=== PATIENT | female | born 1970 | race Caucasian/White ===

== ENCOUNTER 2016-12-31 19:06 | Inpatient (IN) | payer OTHER ==
[~2016-12-31] VITALS: Ht 160 cm; Wt 100.2 kg
[~2016-12-31 19:06] MED LIST: ABI10 PO; ABILIFY PO; ABILIFY15 MG PO; AMBIEN5 MG PO; ASPIR LOW81 MG PO; BACLOFEN10 MG PO; BENAZEPRIL10 MG PO; BENC TOP; BUPROPION HCL150 M1 PO; BUPROPION300 MG PO; BUS10 PO; BUSPIRONE; BUSPIRONE15 MG PO; CLONAZEPAM0.5 MG PO; FIORICET1 TAB PO; FLEXERIL10 MG PO; GABAPENTIN; GLU500 PO; HUMI SC; INSULIN; LIPI20 PO; LIT300 PO; LITHIUM CARB300 MG PO; LITHIUM CARBON300 MG PO; LITHONATE300 MG PO; LYRICA150 M1 PO; LYRICA75 M1 PO; METFORMIN HCL1000 MG PO; METFORMIN1000 MG; METFORMIN1000 MG PO; MONTELUKAST SOD10 M1 PO; MOTRIN800 MG PO; NEU100 PO; OXYCODONE HYDRO10 M1 PO; REM15 PO; SEROQUEL25 MG PO; SEROQUEL300 MG; SEROQUEL300 MG PO; SIMVASTATIN10 M1 PO; THERAGRAN-M1 TA4 PO; TRAZODONE HYDR150 MG PO; TRAZODONE100 M1 PO; TRAZODONE150 M1 PO; VOL25 PO; WELLBUTRIN SR150 M PO; WELLBUTRIN SR200 MG PO; WELSR PO; ZESTRIL5 MG PO
[2016-12-31 20:28] LABS: BASOPHIL % 0.3 % (0-2); PLATELET COUNT 195 x10^3mcL (130-400); RED CELL DISTRIBUTION WIDTH 15.6 % (11.5-14.5)
[2016-12-31 20:51] LABS: CALCIUM 8.3 mg/dL (8.5-10.1); CHLORIDE SERUM 98 mmol/L (98-107); CREATININE SERUM 0.8 mg/dL (0.6-1.0); GFR1 > 60 mL/min; GLUCOSE SERUM 356 mg/dL (74-106); POTASSIUM SERUM 3.5 mmol/L (3.5-5.1); SODIUM SERUM 135 mmol/L (136-145)
[2016-12-31 20:55] LABS: ALKALINE PHOSPHATASE 104 U/L (46-116); ALT/SGPT 22 U/L (14-59); AST/SGOT 13 U/L (15-37); BILIRUBIN TOTAL 0.3 mg/dL (0.20-1.00); C REACTIVE PROTEIN 5.6 mg/dL (<=0.9); TOTAL PROTEIN, SERUM 6.2 g/dL (6.4-8.2)
[2016-12-31 20:56] LABS: T3 TOTAL 1.01 ng/mL
[2016-12-31 20:57] LABS: microscopic required? YES; urine erythrocyte 3+ (NEGATIVE)
[2016-12-31 21:02] LABS: FREE T4 1.07 ng/dL (0.76-1.46); FREE THYROXINE INDEX 2.5 ug/dL (1.4-4.5); T4(THYROXINE) 7.6 ug/dL (4.7-13.3)
[2016-12-31 21:19] LABS: ALBUMIN 2.8 g/dL (3.4-5.0)
[2016-12-31 21:28] LABS: ERYTHROCYTE SED RATE 32 mm/hr (0-20)
[2016-12-31 22:59] LABS: AMYLASE 25 U/L (25-115); CHOLESTEROL 160 mg/dL (<200); CHOLESTEROL/HDL RATIO 3.8; HDL CHOLESTEROL 42 mg/dL (40-60); LIPASE 129 IU/L (73-393)
[2016-12-31 23:04] LABS: TRIGLYCERIDES 519 mg/dL (<150)
[2016-12-31] MEDS ORDERED: HUMALOG100 U/ML SC (23:04)
[2016-12-31 23:07] VITALS: BP 98/61
[2016-12-31] MEDS ORDERED: LYRICA150 M1 PO (23:45)
[2016-12-31] MEDS ORDERED: METFORMIN HCL1000 MG PO (23:48)
[2016-12-31] MEDS ORDERED: HCTZ/TRIAMTEREN1 CA1 PO (23:50)
[2016-12-31] MEDS ORDERED: BUS10 PO (23:51)
[2016-12-31] MEDS ORDERED: TOPAMAX25 MG PO (23:51)
[2017-01-01 05:27] VITALS: BP 100/55
[2017-01-01 06:24] LABS: BASOPHIL % 0.4 % (0-2); PLATELET COUNT 212 x10^3mcL (130-400)
[2017-01-01 06:30] LABS: RED CELL DISTRIBUTION WIDTH 15.6 % (11.5-14.5)
[2017-01-01 06:44] LABS: CARBON DIOXIDE 26.2 mmol/L (21-32); CHLORIDE SERUM 106 mmol/L (98-107); CREATININE SERUM 0.6 mg/dL (0.6-1.0); GFR1 > 60 mL/min; GLUCOSE SERUM 255 mg/dL (74-106); MAGNESIUM 1.7 mg/dL (1.8-2.4); PHOSPHOROUS 2.8 mg/dL (2.5-4.9); POTASSIUM SERUM 3.9 mmol/L (3.5-5.1); SODIUM SERUM 141 mmol/L (136-145)
[2017-01-01 10:24] VITALS: BP 103/57
[2017-01-01 15:00] VITALS: BP 124/61
[2017-01-01 17:27] VITALS: BP 109/46
[2017-01-01 18:00] VITALS: BP 116/57
[2017-01-01 20:44] VITALS: BP 122/68
[2017-01-02 05:26] VITALS: BP 113/66
[2017-01-02 06:34] LABS: CALCIUM 7.9 mg/dL (8.5-10.1); CARBON DIOXIDE 20.6 mmol/L (21-32); CHLORIDE SERUM 112 mmol/L (98-107); CREATININE SERUM 0.5 mg/dL (0.6-1.0); GFR1 > 60 mL/min; GLUCOSE SERUM 192 mg/dL (74-106); MAGNESIUM 2.4 mg/dL (1.8-2.4); PHOSPHOROUS 3.3 mg/dL (2.5-4.9); POTASSIUM SERUM 4.4 mmol/L (3.5-5.1); SODIUM SERUM 145 mmol/L (136-145)
[2017-01-02 07:19] LABS: BASOPHIL % 0.5 % (0-2); PLATELET COUNT 219 x10^3mcL (130-400)
[2017-01-02 09:46] VITALS: BP 112/56
[2017-01-02] MEDS ORDERED: MAC100 PO (11:13)
[2017-01-02] MEDS ORDERED: LAC PO (11:14)
[2017-01-02] MEDS ORDERED: GLU10 PO (11:14)
[2017-01-02] MEDS ORDERED: COL100 PO (11:15)
[2017-01-02] MEDS ORDERED: GLU850 PO (11:22)
[2017-01-02 13:22] VITALS: BP 106/58
[2017-01-02 13:23] VITALS: BP 106/58; BP 172/90
[2017-01-02 15:33] VITALS: BP 106/58
== END 2017-01-02 17:30 | disposition home health service (06) | DRG 420 ==
LOC: ED 19:06 → DU 22:12
PROVIDERS: Family Medicine; Specialist; ADMIT Family Medicine
DX: E11.65 Type 2 diabetes mellitus with hyperglycemia (principal); G93.41 Metabolic encephalopathy; N39.0 Urinary tract infection, site not specified; B37.3 Candidiasis of vulva and vagina; E11.42 Type 2 diabetes mellitus with diabetic polyneuropathy; I10 Essential (primary) hypertension; J44.9 Chronic obstructive pulmonary disease, unspecified; G47.00 Insomnia, unspecified; E78.5 Hyperlipidemia, unspecified; F31.30 Bipolar disorder, current episode depressed, mild or moderate severity, unspecified; Z79.4 Long term (current) use of insulin; Z87.891 Personal history of nicotine dependence; Z68.39 Body mass index [BMI] 39.0-39.9, adult; Z79.84 Long term (current) use of oral hypoglycemic drugs; Z98.51 Tubal ligation status; Z88.8 Allergy status to other drugs, medicaments and biological substances; Z80.3 Family history of malignant neoplasm of breast; Z83.3 Family history of diabetes mellitus; Z82.49 Family history of ischemic heart disease and other diseases of the circulatory system; Z82.3 Family history of stroke; M19.90 Unspecified osteoarthritis, unspecified site
CPT/HCPCS: 36600; 82962; 83880; 84439; 97110-GP; 97116-GP; 97530-GP; J0696; J1815; J2405; J3475; J7030; J7613; Q0092

== ENCOUNTER 2017-03-21 14:12 | Emergency (ER) | payer OTHER ==
[~2017-03-21] VITALS: Ht 160 cm; Wt 111.3 kg
[~2017-03-21 14:12] MED LIST changes: +COL100 PO; +GLU10 PO; +GLU850 PO; +HCTZ/TRIAMTEREN1 CA1 PO; +HUMALOG100 U/ML SC; +LAC PO; +MAC100 PO; +TOPAMAX25 MG PO
[2017-03-21 15:30] LABS: BASOPHIL % 0.6 % (0-2); PLATELET COUNT 312 x10^3mcL (130-400)
[2017-03-21 15:36] LABS: CALCIUM 8.8 mg/dL (8.5-10.1); CREATININE SERUM 1.1 mg/dL (0.6-1.0); POTASSIUM SERUM 3.7 mmol/L (3.5-5.1)
[2017-03-21 15:42] LABS: ALBUMIN 3.5 g/dL (3.4-5.0); BILIRUBIN TOTAL 0.43 mg/dL (0.20-1.00); TOTAL PROTEIN, SERUM 7.4 g/dL (6.4-8.2)
[2017-03-21 17:00] VITALS: BP 126/77
== END 2017-03-21 17:00 | disposition home or self-care (01) ==
LOC: ED 14:12
PROVIDERS: Emergency Medicine
DX: K29.70 Gastritis, unspecified, without bleeding (principal); R60.0 Localized edema; J44.9 Chronic obstructive pulmonary disease, unspecified; E11.9 Type 2 diabetes mellitus without complications; I10 Essential (primary) hypertension; E66.9 Obesity, unspecified; G62.9 Polyneuropathy, unspecified; F31.9 Bipolar disorder, unspecified; Z79.4 Long term (current) use of insulin; Z79.899 Other long term (current) drug therapy; Z88.8 Allergy status to other drugs, medicaments and biological substances
CPT/HCPCS: Q0092; Q0162

== ENCOUNTER 2017-04-23 12:38 | Inpatient (IN) | payer OTHER ==
[~2017-04-23] VITALS: Ht 160 cm; Wt 114.0 kg
[2017-04-23 13:21] LABS: BASOPHIL % 0.4 % (0-2); PLATELET COUNT 225 x10^3mcL (130-400)
[2017-04-23 13:26] LABS: RED CELL DISTRIBUTION WIDTH 14.8 % (11.5-14.5)
[2017-04-23 13:29] LABS: CALCIUM 9.3 mg/dL (8.5-10.1); CARBON DIOXIDE 21.2 mmol/L (21-32); CHLORIDE SERUM 108 mmol/L (98-107); CREATININE SERUM 0.9 mg/dL (0.6-1.0); GFR1 > 60 mL/min; GLUCOSE SERUM 334 mg/dL (74-106); SODIUM SERUM 140 mmol/L (136-145)
[2017-04-23 13:33] LABS: ALBUMIN 3.2 g/dL (3.4-5.0); ALKALINE PHOSPHATASE 108 U/L (46-116); ALT/SGPT 40 U/L (14-59); AST/SGOT 24 U/L (15-37); BILIRUBIN TOTAL 0.23 mg/dL (0.20-1.00); TOTAL PROTEIN, SERUM 6.7 g/dL (6.4-8.2)
[2017-04-23 14:15] LABS: microscopic required? NO
[2017-04-23 14:34] LABS: UA SPECIFIC GRAVITY <=1.005 (1.005-1.035); urine erythrocyte NEGATIVE (NEGATIVE)
[2017-04-23] MEDS ORDERED: TOPAMAX50 M1 PO (15:06)
[2017-04-23] MEDS ORDERED: WELLBUTRIN XL300 M1 PO (15:08)
[2017-04-23] MEDS ORDERED: LANTUS SOLOS100 U/M1 SQ (15:10)
[2017-04-23] MEDS ORDERED: MIDODRINE HCL10 MG PO (15:15)
[2017-04-23] MEDS ORDERED: ALBUTEROL SULFAT3 ML NEB (15:16)
[2017-04-23] MEDS ORDERED: VENTOLIN H0.09 MG/A1 INH (15:16)
[2017-04-23] MEDS ORDERED: SINGULAIR10 MG PO (15:17)
[2017-04-23] MEDS ORDERED: MIRTAZAPINE15 M2 PO (15:17)
[2017-04-23] MEDS ORDERED: CLONAZEPAM0.5 MG PO (15:17)
[2017-04-23] MEDS ORDERED: PERCOCET1 TA5 PO (15:17)
[2017-04-23] MEDS ORDERED: FLOVENT DI100 MCG/A1 (15:19)
[2017-04-23] MEDS ORDERED: BREO ELLIPTA1 POW (15:19)
[2017-04-23] MEDS ORDERED: BUS10 PO (15:19)
[2017-04-23] MEDS ORDERED: AMBIEN5 MG PO (15:20)
[2017-04-23 15:43] VITALS: BP 124/71
[2017-04-23 16:55] VITALS: BP 124/71
[2017-04-23 17:08] VITALS: BP 124/76
[2017-04-23 20:56] VITALS: BP 107/59
[2017-04-24 05:17] VITALS: BP 104/71
[2017-04-24 06:27] LABS: CALCIUM 9.2 mg/dL (8.5-10.1); CARBON DIOXIDE 24.8 mmol/L (21-32); CHLORIDE SERUM 108 mmol/L (98-107); CREATININE SERUM 0.8 mg/dL (0.6-1.0); GFR1 > 60 mL/min; GLUCOSE SERUM 205 mg/dL (74-106); POTASSIUM SERUM 3.8 mmol/L (3.5-5.1); SODIUM SERUM 142 mmol/L (136-145)
[2017-04-24 06:34] LABS: BASOPHIL % 0.4 % (0-2); PLATELET COUNT 220 x10^3mcL (130-400)
[2017-04-24 06:47] LABS: RED CELL DISTRIBUTION WIDTH 14.8 % (11.5-14.5)
[2017-04-24 09:27] VITALS: BP 119/67
[2017-04-24 11:46] VITALS: Ht 160 cm; Wt 114.0 kg
[2017-04-24] MEDS ORDERED: LASIX20 MG PO (14:13)
[2017-04-24 15:17] VITALS: BP 119/67
== END 2017-04-24 16:00 | disposition home or self-care (01) | DRG 194 ==
LOC: ED 12:38 → DU 14:06
PROVIDERS: Emergency Medicine; ADMIT Internal Medicine Pulmonary Disease
DX: I11.0 Hypertensive heart disease with heart failure (principal); J44.9 Chronic obstructive pulmonary disease, unspecified; E66.9 Obesity, unspecified; I50.23 Acute on chronic systolic (congestive) heart failure; G47.33 Obstructive sleep apnea (adult) (pediatric); E11.9 Type 2 diabetes mellitus without complications
CPT/HCPCS: 82962; 83880; J1815; J1940; J3535; J7613; Q0092

== ENCOUNTER 2017-09-11 21:15 | Inpatient (IN) | payer OTHER ==
[~2017-09-11] VITALS: Ht 160 cm; Wt 115.7 kg
[~2017-09-11 21:15] MED LIST changes: +ALBUTEROL SULFAT3 ML NEB; +BREO ELLIPTA1 POW; +FLOVENT DI100 MCG/A1; +LANTUS SOLOS100 U/M1 SQ; +LASIX20 MG PO; +MIDODRINE HCL10 MG PO; +MIRTAZAPINE15 M2 PO; +PERCOCET1 TA5 PO; +SINGULAIR10 MG PO; +TOPAMAX50 M1 PO; +VENTOLIN H0.09 MG/A1 INH; +WELLBUTRIN XL300 M1 PO
[2017-09-11 21:19] VITALS: Ht 160 cm; Wt 115.7 kg
[2017-09-11 21:59] LABS: BASOPHIL % 0.4 % (0-2); PLATELET COUNT 302 x10^3mcL (130-400); RED CELL DISTRIBUTION WIDTH 18.7 % (11.5-14.5)
[2017-09-11 22:08] LABS: CALCIUM 9.3 mg/dL (8.5-10.1); CARBON DIOXIDE 26.9 mmol/L (21-32); CHLORIDE SERUM 102 mmol/L (98-107); CREATININE SERUM 0.7 mg/dL (0.6-1.0); GFR1 > 60 mL/min; GLUCOSE SERUM 175 mg/dL (74-106); POTASSIUM SERUM 3.6 mmol/L (3.5-5.1); SODIUM SERUM 139 mmol/L (136-145)
[2017-09-11 22:13] LABS: ALBUMIN 3.5 g/dL (3.4-5.0); ALKALINE PHOSPHATASE 95 U/L (46-116); ALT/SGPT 62 U/L (14-59); AST/SGOT 113 U/L (15-37); BILIRUBIN TOTAL 0.31 mg/dL (0.20-1.00); TOTAL PROTEIN, SERUM 7.5 g/dL (6.4-8.2)
[2017-09-12 00:11] LABS: CHOLESTEROL/HDL RATIO 3.7; MAGNESIUM 1.6 mg/dL (1.8-2.4); PHOSPHOROUS 3.3 mg/dL (2.5-4.9)
[2017-09-12 00:24] LABS: FREE T4 1.16 ng/dL (0.76-1.46); FREE THYROXINE INDEX 2.9 ug/dL (1.4-4.5); T4(THYROXINE) 9.2 ug/dL (4.7-13.3)
[2017-09-12 01:01] VITALS: BP 103/56
[2017-09-12] MEDS ORDERED: RISPERIDONE2 M1 PO (01:49)
[2017-09-12] MEDS ORDERED: CLONAZEPAM0.5 MG PO (01:49)
[2017-09-12 02:54] LABS: T3 TOTAL 1.3 ng/mL
[2017-09-12 05:08] VITALS: BP 109/67
[2017-09-12 06:27] LABS: TOTAL IRON BINDING CAPACITY 396 ug/dL (250-450)
[2017-09-12 06:44] LABS: IRON 25 ug/dL (50-170)
[2017-09-12 07:49] LABS: RED BLOOD CELLS 4.39 M/mm3 (4.10-5.10)
[2017-09-12 08:59] VITALS: BP 110/70
[2017-09-12 12:49] VITALS: BP 126/82
[2017-09-12 15:41] LABS: microscopic required? NO
[2017-09-12 15:51] LABS: UA SPECIFIC GRAVITY 1.015 (1.005-1.035); urine erythrocyte NEGATIVE (NEGATIVE)
[2017-09-12 16:30] LABS: AMPHETAMINE QUAL UR NONE DETECTED (NEG <=1000)
[2017-09-12 16:41] VITALS: BP 123/76
[2017-09-12 20:59] VITALS: BP 109/65
[2017-09-13 05:14] VITALS: BP 125/68
[2017-09-13 06:51] LABS: BASOPHIL % 0.7 % (0-2); PLATELET COUNT 237 x10^3mcL (130-400)
[2017-09-13 07:21] LABS: CALCIUM 8.7 mg/dL (8.5-10.1); CARBON DIOXIDE 24.5 mmol/L (21-32); CHLORIDE SERUM 102 mmol/L (98-107); CREATININE SERUM 0.6 mg/dL (0.6-1.0); GFR1 > 60 mL/min; GLUCOSE SERUM 201 mg/dL (74-106); MAGNESIUM 1.7 mg/dL (1.8-2.4); PHOSPHOROUS 3.8 mg/dL (2.5-4.9); POTASSIUM SERUM 3.9 mmol/L (3.5-5.1); SODIUM SERUM 136 mmol/L (136-145)
[2017-09-13 07:33] LABS: RED CELL DISTRIBUTION WIDTH 18.9 % (11.5-14.5)
[2017-09-13 09:31] VITALS: BP 112/60
[2017-09-13] MEDS ORDERED: METAMUCIL FIBE3.4 GM PO (09:45)
[2017-09-13 12:58] VITALS: BP 112/60
[2017-09-13 13:47] VITALS: BP 98/63
== END 2017-09-13 14:00 | disposition home or self-care (01) | DRG 756 ==
LOC: ED 21:15 → DU 23:34
PROVIDERS: Emergency Medicine; Family Medicine
DX: F41.1 Generalized anxiety disorder (principal); I11.0 Hypertensive heart disease with heart failure; I50.9 Heart failure, unspecified; E11.40 Type 2 diabetes mellitus with diabetic neuropathy, unspecified; Z88.8 Allergy status to other drugs, medicaments and biological substances; J44.9 Chronic obstructive pulmonary disease, unspecified; F31.9 Bipolar disorder, unspecified; E11.65 Type 2 diabetes mellitus with hyperglycemia; E78.5 Hyperlipidemia, unspecified; E66.01 Morbid (severe) obesity due to excess calories; Z68.41 Body mass index [BMI] 40.0-44.9, adult; E83.42 Hypomagnesemia; E02 Subclinical iodine-deficiency hypothyroidism; D64.9 Anemia, unspecified; Z83.3 Family history of diabetes mellitus; Z82.49 Family history of ischemic heart disease and other diseases of the circulatory system; Z80.3 Family history of malignant neoplasm of breast; Z82.3 Family history of stroke; F17.200 Nicotine dependence, unspecified, uncomplicated
CPT/HCPCS: 82962; 83880; 84439; J2405; J7030; J7613; J7620; J7633; J7644; Q0092

== ENCOUNTER 2017-11-25 11:35 | Emergency (ER) | payer OTHER ==
[~2017-11-25] VITALS: Ht 160 cm; Wt 115.2 kg
[~2017-11-25 11:35] MED LIST changes: +METAMUCIL FIBE3.4 GM PO; +RISPERIDONE2 M1 PO
[2017-11-25 11:42] VITALS: Ht 160 cm; Wt 115.2 kg
[2017-11-25 13:55] VITALS: BP 108/88
== END 2017-11-25 13:55 | disposition home or self-care (01) ==
LOC: ED 11:35
DX: Z48.01 Encounter for change or removal of surgical wound dressing (principal); J44.9 Chronic obstructive pulmonary disease, unspecified; I10 Essential (primary) hypertension; E11.9 Type 2 diabetes mellitus without complications; Z88.8 Allergy status to other drugs, medicaments and biological substances

== ENCOUNTER 2018-06-29 11:52 | Emergency (ER) | payer OTHER ==
[~2018-06-29] VITALS: Ht 160 cm; Wt 114.8 kg
[2018-06-29 12:28] VITALS: Ht 160 cm; Wt 114.8 kg
[2018-06-29 14:09] LABS: ALBUMIN 3.4 g/dL (3.4-5.0); BILIRUBIN TOTAL 0.25 mg/dL (0.20-1.00); CALCIUM 9.3 mg/dL (8.5-10.1); CARBON DIOXIDE 22.8 mmol/L (21-32); CREATININE SERUM 1.2 mg/dL (0.6-1.0); POTASSIUM SERUM 4.9 mmol/L (3.5-5.1); TOTAL PROTEIN, SERUM 7.5 g/dL (6.4-8.2)
[2018-06-29 14:15] LABS: BASOPHIL % 0.4 % (0-2); PLATELET COUNT 236 x10^3mcL (130-400)
[2018-06-29 14:16] LABS: RED CELL DISTRIBUTION WIDTH 17.8 % (11.5-14.5)
[2018-06-29 14:49] LABS: microscopic required? NO
[2018-06-29 14:58] LABS: urine erythrocyte NEGATIVE (NEGATIVE)
[2018-06-29 17:21] VITALS: BP 122/80
== END 2018-06-29 17:21 | disposition home or self-care (01) ==
LOC: ED 11:52
PROVIDERS: Emergency Medicine
DX: L02.811 Cutaneous abscess of head [any part, except face] (principal); E11.65 Type 2 diabetes mellitus with hyperglycemia; J45.909 Unspecified asthma, uncomplicated; J44.9 Chronic obstructive pulmonary disease, unspecified; I10 Essential (primary) hypertension; G62.9 Polyneuropathy, unspecified; N83.209 Unspecified ovarian cyst, unspecified side; M19.90 Unspecified osteoarthritis, unspecified site; Z88.8 Allergy status to other drugs, medicaments and biological substances
CPT/HCPCS: 82962; J1815; J7030; Q0162

== ENCOUNTER 2019-05-13 17:42 | Emergency (ER) | payer OTHER ==
[~2019-05-13] VITALS: Ht 160 cm; Wt 90.7 kg
[2019-05-13 17:48] VITALS: Ht 160 cm; Wt 90.7 kg
[2019-05-13 19:11] LABS: BASOPHIL % 1.1 % (0-2); PLATELET COUNT 239 x10^3mcL (130-400); RED CELL DISTRIBUTION WIDTH 14.3 % (11.5-14.5)
[2019-05-13 19:24] LABS: CARBON DIOXIDE 27.3 mmol/L (21-32); CHLORIDE SERUM 102 mmol/L (98-107); GFR1 > 60 mL/min; GLUCOSE SERUM 187 mg/dL (74-106); POTASSIUM SERUM 3.7 mmol/L (3.5-5.1); SODIUM SERUM 139 mmol/L (136-145)
[2019-05-13 19:36] LABS: ALBUMIN 3.8 g/dL (3.4-5.0); ALKALINE PHOSPHATASE 69 U/L (46-116); ALT/SGPT 15 U/L (14-59); AST/SGOT 15 U/L (15-37); BILIRUBIN TOTAL 0.4 mg/dL (0.20-1.00); CHOLESTEROL 235 mg/dL (<200); HDL CHOLESTEROL 37 mg/dL (40-60); LIPASE 95 IU/L (73-393); MAGNESIUM 1.3 mg/dL (1.8-2.4); T4(THYROXINE) 7.1 ug/dL (4.7-13.3); TOTAL PROTEIN, SERUM 7.5 g/dL (6.4-8.2)
[2019-05-13 20:59] LABS: UA SPECIFIC GRAVITY 1.015 (1.005-1.035); microscopic required? YES; urine erythrocyte 1+ (NEGATIVE)
[2019-05-13 21:13] LABS: AMPHETAMINE QUAL UR NONE DETECTED (See below)
[2019-05-13 23:40] VITALS: BP 144/79
== END 2019-05-13 23:40 | disposition home or self-care (01) ==
LOC: ED 17:42
PROVIDERS: Emergency Medicine
DX: J44.1 Chronic obstructive pulmonary disease with (acute) exacerbation (principal); E11.9 Type 2 diabetes mellitus without complications; B69.9 Cysticercosis, unspecified; I10 Essential (primary) hypertension; E66.9 Obesity, unspecified; F17.210 Nicotine dependence, cigarettes, uncomplicated; Z68.35 Body mass index [BMI] 35.0-35.9, adult; Z71.6 Tobacco abuse counseling
CPT/HCPCS: 36600; 82962; 87804; 99406; G0480; J1956; J2930; J7613; J7644; Q0092

== ENCOUNTER 2020-02-15 14:02 | Emergency (ER) | payer OTHER ==
[~2020-02-15] VITALS: Ht 160 cm; Wt 81.6 kg
[2020-02-15 14:36] VITALS: Ht 160 cm; Wt 81.6 kg
[2020-02-15 17:10] LABS: BASOPHIL % 0.5 % (0-2); PLATELET COUNT 254 x10^3mcL (130-400); RED CELL DISTRIBUTION WIDTH 12.7 % (11.5-14.5)
[2020-02-15 17:25] LABS: CALCIUM 9.5 mg/dL (8.5-10.1); CARBON DIOXIDE 22.6 mmol/L (21-32); CHLORIDE SERUM 100 mmol/L (98-107); CREATININE SERUM 0.9 mg/dL (0.6-1.0); GFR1 > 60 mL/min; GLUCOSE SERUM 278 mg/dL (74-106); POTASSIUM SERUM 3.8 mmol/L (3.5-5.1); SODIUM SERUM 138 mmol/L (136-145)
[2020-02-15 19:56] VITALS: BP 104/63
== END 2020-02-15 19:57 | disposition home or self-care (01) ==
LOC: ED 14:02
PROVIDERS: Student in an Organized Health Care Education/Training Program
DX: M25.362 Other instability, left knee (principal); I10 Essential (primary) hypertension; E11.9 Type 2 diabetes mellitus without complications; J45.909 Unspecified asthma, uncomplicated; R26.2 Difficulty in walking, not elsewhere classified; Z88.8 Allergy status to other drugs, medicaments and biological substances; Z13.9 Encounter for screening, unspecified; Z88.6 Allergy status to analgesic agent
CPT/HCPCS: 82962; Q0092

== ENCOUNTER 2020-03-20 00:05 | Inpatient (IN) | payer OTHER ==
[~2020-03-20] VITALS: Ht 160 cm; Wt 89.0 kg
--- NOTE | 2020-03-20 00:27 | NUR ---
PT BIB [facility] FROM HOME S/P SYNCOPAL EPISODE DURING HARD BM TONIGHT. PT STATES SHE WAS HAVING A HARD BM AND THEY PASSED OUT. PT ALSO WITH C/O 10/10 PAIN TO LUMP ON LT BREAST X 3 WEEKS AND IS IN THE PROCESS OF HAVING A MAMMOGRAM DONE. PT STATES SHE STARTED A NEW MEDICATION FOR RESTLESS LEG SYNDROME TODAY. PT DENIES ANY FEVER, N/V/D, RESP ILLNESS OR URINARY PROBLEMS AT THIS TIME.
[2020-03-20 00:52] LABS: BASOPHIL % 0.4 % (0-2); PLATELET COUNT 317 x10^3mcL (130-400); RED CELL DISTRIBUTION WIDTH 14.2 % (11.5-14.5)
--- NOTE | 2020-03-20 00:56 | NUR ---
PT STATING SHE WILL USE THE BEDPAN FOR A URINE SAMPLE AFTER SOME OF THE IV FLUIDS HAVE GONE IN.
[2020-03-20 01:04] LABS: ALBUMIN 3.5 g/dL (3.4-5.0); ALKALINE PHOSPHATASE 78 U/L (46-116); ALT/SGPT 14 U/L (14-59); AST/SGOT 5 U/L (15-37); BILIRUBIN TOTAL 0.16 mg/dL (0.20-1.00); CALCIUM 8.4 mg/dL (8.5-10.1); CARBON DIOXIDE 23.2 mmol/L (21-32); CHLORIDE SERUM 103 mmol/L (98-107); GFR1 > 60 mL/min; GLUCOSE SERUM 237 mg/dL (74-106); LIPASE 786 IU/L (73-393); SODIUM SERUM 136 mmol/L (136-145); TOTAL PROTEIN, SERUM 6.5 g/dL (6.4-8.2)
--- NOTE | 2020-03-20 01:28 | NUR ---
PT PLACED ON BEDPAN FOR URINE SAMPLE. CALL LIGHT WITHIN REACH FOR PT TO CALL WHEN READY.
--- NOTE | 2020-03-20 01:34 | NUR ---
PT TO RADIOLOGY FOR CT SCAN
--- NOTE | 2020-03-20 03:08 | NUR ---
PT ASLEEP IN GURNEY. RESP E/U, APPEARS IN NO DISTRESS. PT EASILY AROUSABLE TO VERBAL STIMULI. DENIES PAIN, STS FEELS "VERY TIRED" AND STS STILL FEELS DIZZY. PT FALLS ASLEEP QUICKLY. VSS ON CM AND CONTINUOUS PULSE OX. NO ACUTE CHANGES IN PT CONDITION. AWAITING DISPOSITION.
--- NOTE | 2020-03-20 03:11 | NUR ---
DR LOMBARDO AT BEDSIDE DISCUSSING PLAN OF CARE WITH PT.
--- NOTE | 2020-03-20 03:19 | NUR ---
PT IN AGREEMENT WITH PLAN FOR ADMISSION. IV NS BOLUS AND ABX INFUSING ORDERED; SEE EMAR.
[2020-03-20] MEDS ORDERED: CYMBALTA60 M1 PO (03:22)
[2020-03-20] MEDS ORDERED: LATUDA80 M1 PO (03:22)
[2020-03-20] MEDS ORDERED: HORIZANT600 M1 PO (03:23)
[2020-03-20] MEDS ORDERED: AMBIEN10 MG PO (03:23)
[2020-03-20] MEDS ORDERED: PERCOCET1 TA5 PO (03:24)
--- NOTE | 2020-03-20 04:40 | NUR ---
RECEIVED PT FROM [facility] [employer] [employer], CAME IN DUE TO SYNCOPE. DROWSY BUT AROUSABLE TO VERBAL STIMULI. ABLE TO FOLLOW COMMANDS. DENIES HEADACHE/DIZZINESS. ABLE TO FOLLOW COMMANDS. NO SOB NOTED, LUNG SOUNDS CTA, O2 SAT=99%, RA. DENIES CHEST PAIN/PRESSURE, SR ON THE MONITOR. STATED THAT SHE HAS 8/10 LEFT BREAST PAIN, HAS HISTORY OF LUMP ON THE LEFT BREAST. STATED THAT SHE HAS 3/10 ABDOMINAL PAIN. DENIES NAUSEA/VOMITING. ABDOMEN IS SOFT AND ROUND. IV SITE PATENT AND INTACT. SIDE RAILS UPX2. CALL LIGHT ON REACH. BED ALARM ON.
[2020-03-20 04:46] VITALS: BP 115/56
[2020-03-20 04:51] LABS: UA SPECIFIC GRAVITY <=1.005 (1.005-1.035); microscopic required? YES; urine erythrocyte 1+ (NEGATIVE)
[2020-03-20 04:54] VITALS: Ht 160 cm; Wt 89.0 kg
[2020-03-20 05:00] LABS: AMPHETAMINE QUAL UR NONE DETECTED (See below)
--- NOTE | 2020-03-20 05:01 | NUR ---
DR. MARAVILLA AT BEDSIDE TO ASSESS THE PATIENT
--- NOTE | 2020-03-20 05:30 | NUR ---
PT HAS HER EYES CLOSED, NO S/S OF PAIN AND SOB. NEEDS ARE ATTENDED. CALL LIGHT ON REACH. WILL CONT TO MONITOR
--- NOTE | 2020-03-20 05:49 | NUR ---
SPOKE TO [facility] TO VERIFY PERCOCET, PER PHARMACIST, PT NEEDS PAIN SCALE IN PLACE BEFORE MEDICATION CAN LEXUS VERIFIED. DR. MARAVILLA IS PAGED. WAITING FOR CALLBACK.
--- NOTE | 2020-03-20 06:08 | NUR ---
ORTHO VITALS DONE. OFFERED PATIENT PAIN MEDICATION FOR C/O LEFT BREAST AND ABDOMINAL PAIN, PT STATED THAT SHE DOES NOT WANT PAIN MEDICATIONS AT THIS TIME. INSTRUCTED PT TO CALL IF SHE NEEDS PAIN MEDICATION AND FOR ANY OTHER ASSISTANCE. PT VERBALIZES UNDERSTANDING.
--- NOTE | 2020-03-20 07:03 | NUR ---
BEDSIDE REPORT GIVEN TO EDWIN FOR CONTINUITY OF CARE
--- NOTE | 2020-03-20 07:30 | NUR ---
PATIENT IS A&OX4, FOLLOWS COMMANDS AND COOPERATES WELL. PATIENT IS DROWSY AT THIS TIME, WITH GARBLED SPEECH DUE TO DROWSINESS. PATIENT RESPONDS TO VERBAL STIMULI. TELE #9, NSR, DENIES CHEST PAIN. PERIPHERAL PULSES PALPABLE W/ NO SIGNS OF EDEMA. LUNG SOUNDS CTA BILATERALLY, ON RA, O2 SAT 97%, DENIES SOB. NROMOACTIVE BSX4, ABD SOFT AND FLAT, STATES CONSTIPATION. VOIDS USING RESTROOM. AMBULATORY WITH GENERALIZED WEAKNESS. SKIN IS CDI. DENIES PAIN OR DISCOMFORT AT THIS TIME. IV SITE IS CDI. WILL CONTINUE TO MONITOR PATIENT.
--- NOTE | 2020-03-20 09:23 | NUR ---
[facility] ULTRASOUND CONTACTED AND STATED THAT US OF CAROTID WILL BE DONE THIS AFTERNOON AT 1500. WILL CONTINUE TO MONITOR PATIENT.
[2020-03-20 09:32] LABS: BASOPHIL % 0.7 % (0-2); PLATELET COUNT 302 x10^3mcL (130-400); RED CELL DISTRIBUTION WIDTH 14.2 % (11.5-14.5)
[2020-03-20 09:40] LABS: CHOLESTEROL/HDL RATIO 4.2; PHOSPHOROUS 4.2 mg/dL (2.5-4.9)
[2020-03-20 09:44] LABS: T3 TOTAL 0.88 ng/mL
[2020-03-20 09:50] LABS: FREE T4 0.96 ng/dL (0.76-1.46); FREE THYROXINE INDEX 1.5 ug/dL (1.4-4.5); T4(THYROXINE) 5.1 ug/dL (4.7-13.3)
[2020-03-20 12:33] VITALS: BP 118/68
[2020-03-20 16:20] VITALS: BP 131/75
--- NOTE | 2020-03-20 18:12 | NUR ---
P.T. NOTES P.T. EVAL COMPLETED; REFER TO EVAL FOR DETAILS; XE=583/71 (SUPINE), 117/73 (SITTING), 109/57 (STANDING); AMBULATORY W/ FWW; D/C FROM P.T. AFTER EVAL, ENDORSED TO NURSING.
--- NOTE | 2020-03-20 18:46 | NUR ---
PATIENT IS CURRENTLY RESTING AT THIS TIME AND ATE HER DINNER. PATIENT DENIES ANY PAIN OR DISCOMFORT AT THIS TIME. WILL CONTINUE TO MONITOR PATIENT.
[2020-03-20 19:11] VITALS: BP 137/64
--- NOTE | 2020-03-20 20:32 | NUR ---
PT ASKED FOR EYEGLASS BROUGHT FROM HOME. EYEGLASS AT NURSES' STATION, HANDED OVER TO PT. STATED SHE NEEDS HER PERCOCET AND AMBIEN, NOTED IN HOME MED RECONCILIATION TONIGHT. WILL INFORM DR. MORGAN
--- NOTE | 2020-03-20 21:29 | NUR ---
paged dr. mcghee for pt's request for ambien and percocet
--- NOTE | 2020-03-20 23:44 | NUR ---
LATE ENTRY:2000H - AWAKE AND ALERT, ORIENTED TO NAME, PLACE, TIME AND SITUATION. SPEECH CLEAR AND APPROPRIATE. TALKING WITH SOMEONE OVER THE PHONE. BREATHING EVEN AND UNLABORED ON ROOM AIR. DENIES HAVING DIZZINESS. CALL LIGHT WITHIN EASY REACH.
--- NOTE | 2020-03-21 01:46 | NUR ---
eyes closed, breathing even and unlabored on room air. call light within easy reach.
--- NOTE | 2020-03-21 04:13 | NUR ---
PT STATED HAVING HEADACHE. STATED PERCOCET DOES NOT WORK FOR HER HEADACHE. WANTS TYLENOL. INFORMED DR. HALE WHO PLACED NEW ORDER. CALLED [facility] TO VERIFY
[2020-03-21 04:49] VITALS: BP 130/79
--- NOTE | 2020-03-21 04:54 | NUR ---
HEART RATE AT 114-120/MIN.
--- NOTE | 2020-03-21 07:02 | NUR ---
IN NO ACUTE DISTRESS. EYES CLOSED, ENDORSED TO NURSE EDWIN
[2020-03-21 07:12] LABS: BASOPHIL % 0.4 % (0-2); PLATELET COUNT 309 x10^3mcL (130-400); RED CELL DISTRIBUTION WIDTH 14.4 % (11.5-14.5)
[2020-03-21 07:40] LABS: CALCIUM 8.6 mg/dL (8.5-10.1); CARBON DIOXIDE 22.2 mmol/L (21-32); CHLORIDE SERUM 107 mmol/L (98-107); CREATININE SERUM 0.6 mg/dL (0.6-1.0); GFR1 > 60 mL/min; GLUCOSE SERUM 139 mg/dL (74-106); SODIUM SERUM 141 mmol/L (136-145)
--- NOTE | 2020-03-21 07:59 | NUR ---
PATIENT IS A&OX4, FOLLOWS COMMANDS AND COOPERATES WELL. TELE #9, NSR, DENIES CHEST PAIN. PERIPEHRAL PULSES PALPABLE W/ NO SIGNS OF EDEMA. LUNG SOUNDS CTA BILATERALLY, ON RA, O2 SAT 99%, DENIES SOB. NORMOACTIVE BSX4, ABD SOFT AND ROUND, DENIES ABD PAIN. VOIDS USING RESTROOM. GENERALIZED WEAKNESS BUT AMBULATORY. SKIN IS CDI. STATES INCREASING LEFT BREAST PAIN. IV SITE IS CDI. WILL CONTINUE TO MONITOR PATIENT.
[2020-03-21 08:02] LABS: MAGNESIUM 1.7 mg/dL (1.8-2.4)
--- NOTE | 2020-03-21 08:14 | NUR ---
RECEIVED ORDER FOR US GUIDED BREAST BIOPSY WHICH IS NO LONGER A SERVICE OFFERED AT [facility]. NOTIFIED CHARGE NURSE CLARISA THAT PATIENT SHOULD BE REFERRED TO A BREAST CENTER UPON DISCHARGE FOR FOLLOW UP.
[2020-03-21 08:28] VITALS: BP 142/73
[2020-03-21 08:35] LABS: PHOSPHOROUS 2.8 mg/dL (2.5-4.9)
[2020-03-21 12:57] VITALS: BP 126/64
[2020-03-21 13:41] VITALS: BP 126/64
--- NOTE | 2020-03-21 15:09 | NUR ---
PATIENT HAS RECEIVED DISCAHRGE INSTRUCTIONS. ALL QUESTIONS AND CONCERNS HAVE BEEN ADDRESSED. PATIENT DENIES ANY PAIN OR DISCOMFORT AT THIS TIME. IV WAS REMOVED AND CATHETER INTACT. TELE HAS BEEN RETURNED TO STATION. PATIENT IS AWAITING FOR TO PICK HER UP. WILL CONTINUE TO MONITOR PATIENT IN THE MEANTIME.
== END 2020-03-21 15:16 | disposition home or self-care (01) | DRG 282 ==
LOC: ED 00:05 → DU 03:51
PROVIDERS: Emergency Medicine; Family Medicine; ADMIT Internal Medicine; ATTEND Internal Medicine
DX: K85.90 Acute pancreatitis without necrosis or infection, unspecified (principal); E11.40 Type 2 diabetes mellitus with diabetic neuropathy, unspecified; E87.2 Acidosis; R65.10 Systemic inflammatory response syndrome (SIRS) of non-infectious origin without acute organ dysfunction; E86.0 Dehydration; E11.9 Type 2 diabetes mellitus without complications; F17.210 Nicotine dependence, cigarettes, uncomplicated; F31.9 Bipolar disorder, unspecified; I10 Essential (primary) hypertension; G89.29 Other chronic pain; Z79.899 Other long term (current) drug therapy; Z79.82 Long term (current) use of aspirin; Z79.4 Long term (current) use of insulin; Z88.8 Allergy status to other drugs, medicaments and biological substances; Z80.3 Family history of malignant neoplasm of breast; Z83.3 Family history of diabetes mellitus; Z82.3 Family history of stroke; Z82.49 Family history of ischemic heart disease and other diseases of the circulatory system
CPT/HCPCS: 76641; 82962; 83880; 84439; G0378; J0696; J1815; J2405; J7030; Q0092

== ENCOUNTER 2020-03-29 01:27 | Emergency (ER) | payer OTHER ==
[~2020-03-29] VITALS: Ht 162.6 cm; Wt 95.3 kg
[~2020-03-29 01:27] MED LIST changes: +AMBIEN10 MG PO; +CYMBALTA60 M1 PO; +HORIZANT600 M1 PO; +LATUDA80 M1 PO
[2020-03-29 01:38] VITALS: Ht 162.6 cm; Wt 95.3 kg
[2020-03-29 01:56] LABS: BASOPHIL % 1.5 % (0-2); PLATELET COUNT 209 x10^3mcL (130-400); RED CELL DISTRIBUTION WIDTH 13.6 % (11.5-14.5)
[2020-03-29 02:03] LABS: CALCIUM 8.5 mg/dL (8.5-10.1); CHLORIDE SERUM 103 mmol/L (98-107); CREATININE SERUM 1.1 mg/dL (0.6-1.0); GFR1 57 mL/min; GLUCOSE SERUM 175 mg/dL (74-106); POTASSIUM SERUM 4.3 mmol/L (3.5-5.1); SODIUM SERUM 133 mmol/L (136-145)
[2020-03-29 02:09] LABS: ALBUMIN 3.4 g/dL (3.4-5.0); ALKALINE PHOSPHATASE 73 U/L (46-116); ALT/SGPT 13 U/L (14-59); AST/SGOT 15 U/L (15-37); TOTAL PROTEIN, SERUM 6.2 g/dL (6.4-8.2)
[2020-03-29 03:20] VITALS: BP 120/54
[2020-03-29 05:45] LABS: microscopic required? YES; urine erythrocyte 1+ (NEGATIVE)
[2020-03-29 05:56] LABS: AMPHETAMINE QUAL UR NONE DETECTED (See below)
== END 2020-03-29 03:55 | disposition home or self-care (01) ==
LOC: ED 01:27
PROVIDERS: Emergency Medicine
DX: R42 Dizziness and giddiness (principal); J44.9 Chronic obstructive pulmonary disease, unspecified; I10 Essential (primary) hypertension; E11.9 Type 2 diabetes mellitus without complications; Z88.8 Allergy status to other drugs, medicaments and biological substances; Z88.6 Allergy status to analgesic agent
CPT/HCPCS: G0480

== ENCOUNTER 2020-04-28 13:53 | Emergency (ER) | payer OTHER ==
[~2020-04-28] VITALS: Ht 165.1 cm; Wt 87.5 kg
[2020-04-28 14:10] VITALS: Ht 165.1 cm; Wt 87.5 kg
[2020-04-28 15:44] VITALS: BP 115/67
== END 2020-04-28 15:44 | disposition home or self-care (01) ==
LOC: ED 13:53
DX: N63.20 Unspecified lump in the left breast, unspecified quadrant (principal); I10 Essential (primary) hypertension; E11.9 Type 2 diabetes mellitus without complications; J44.9 Chronic obstructive pulmonary disease, unspecified; Z98.890 Other specified postprocedural states

== ENCOUNTER 2020-05-13 20:11 | Emergency (ER) | payer OTHER, SELFPAY ==
[~2020-05-13] VITALS: Ht 160 cm; Wt 86.2 kg
[2020-05-13 20:22] VITALS: Ht 160 cm; Wt 86.2 kg
[2020-05-13 20:57] LABS: BASOPHIL % 1.9 % (0-2); PLATELET COUNT 359 x10^3mcL (130-400); RED CELL DISTRIBUTION WIDTH 14.1 % (11.5-14.5)
[2020-05-13 21:07] LABS: CALCIUM 9.7 mg/dL (8.5-10.1); CARBON DIOXIDE 20.8 mmol/L (21-32); CHLORIDE SERUM 100 mmol/L (98-107); CREATININE SERUM 0.6 mg/dL (0.6-1.0); GFR1 > 60 mL/min; GLUCOSE SERUM 156 mg/dL (74-106); POTASSIUM SERUM 3.6 mmol/L (3.5-5.1); SODIUM SERUM 135 mmol/L (136-145)
[2020-05-13 21:12] LABS: ALBUMIN 3.7 g/dL (3.4-5.0); ALKALINE PHOSPHATASE 66 U/L (46-116); ALT/SGPT 14 U/L (14-59); AST/SGOT 10 U/L (15-37); BILIRUBIN TOTAL 0.39 mg/dL (0.20-1.00); TOTAL PROTEIN, SERUM 7.4 g/dL (6.4-8.2)
[2020-05-14 01:53] VITALS: BP 120/56
== END 2020-05-14 00:50 | disposition home or self-care (01) ==
LOC: ED 20:11
PROVIDERS: Emergency Medicine
DX: B34.9 Viral infection, unspecified (principal); J44.9 Chronic obstructive pulmonary disease, unspecified; N64.4 Mastodynia; I10 Essential (primary) hypertension; E11.40 Type 2 diabetes mellitus with diabetic neuropathy, unspecified; Z88.5 Allergy status to narcotic agent; Z20.828 Contact with and (suspected) exposure to other viral communicable diseases
CPT/HCPCS: J1885; Q0092; Q0162